=== PATIENT | female | born 2000 | race African-American/Black ===

== ENCOUNTER 2025-08-01 19:49 | Emergency (ER) | payer SELFPAY ==
[~2025-08-01] VITALS: Ht 160 cm; Wt 52.2 kg
[2025-08-01 19:54] VITALS: O2SAT 100
[2025-08-01] MEDS: DIPHENHYDRAMINE 50MG/ML VIAL IM ONE (21:10)
[2025-08-01] MEDS: LORAZEPAM 2MG/ML UD SYRINGE IM SCH (21:10)
[2025-08-01] MEDS: HALOPERIDOL LACTATE 5MG/ML VIAL IM ONE (21:10)
[2025-08-01 21:42] LABS: *AMPHETAMINES SCREEN URINE NEGATIVE (NEGATIVE); *BARBITURATES SCREEN URINE NEGATIVE (NEGATIVE); *BENZODIAZEPINES SCREEN URINE NEGATIVE (NEGATIVE); *COCAINE SCREEN URINE NEGATIVE (NEGATIVE)
[2025-08-01 21:43] LABS: CANNABINOID URINE SCREEN PRESUMPTIVE POSITIVE (NEGATIVE); ECSTASY MDMA SCREEN URINE NEGATIVE (NEGATIVE); METHADONE URINE SCREEN NEGATIVE (NEGATIVE); OPIATES URINE SCREEN NEGATIVE (NEGATIVE); PHENCYCLIDINE URINE SCREEN NEGATIVE (NEGATIVE)
[2025-08-01 21:44] LABS: BASOPHILS % 0.7 % (0.0-2.0); EOSINOPHILS % 0.5 % (0.0-5.0); HEMATOCRIT. 38.0 % (36.0-48.0); HEMOGLOBIN. 12.5 g/dL (12.0-16.0); LYMPHOCYTES % 14.8 % (20.0-50.0); MEAN PLATELET VOLUME 7.3 fl (7.4-10.4); MONOCYTES % 9.6 % (2.0-8.0); NEUTROPHILS % 74.4 % (40.0-76.0); PLATELET 303 x1000/uL (130-400); RED BLOOD CELL COUNT 4.59 mill/uL (4.2-5.4); RED CELL DISTRIBUTION WIDTH 15.1 % (11.6-14.6)
[2025-08-01 21:54] LABS: CREATININE 0.9 mg/dL (0.6-1.0); UREA NITROGEN BLOOD 7 mg/dL (9-23)
[2025-08-01 21:55] LABS: ETHANOL BLOOD < 10 mg/dL (<10); PROTEIN TOTAL 7.3 g/dL (6.0-8.3)
[2025-08-01 21:56] LABS: ASPARTATE AMINOTRANSFERASE 23 IU/L (<34); BILIRUBIN DIRECT 0.1 mg/dL (<=3.0); HCG SCREEN NEGATIVE
[2025-08-01 21:57] LABS: BILIRUBIN TOTAL 0.4 mg/dL (0.1-1.0)
[2025-08-01 22:25] LABS: CLARITY URINE CLOUDY (CLEAR); COLOR URINE YELLOW (YELLOW); GLUCOSE URINE NEGATIVE (NEGATIVE); KETONES URINE NEGATIVE (NEGATIVE); LEUKOCYTE ESTERASE URINE 1+ (NEGATIVE); NITRITE URINE POSITIVE (NEGATIVE); OCCULT BLOOD URINE TRACE (NEGATIVE); PH URINE 6.0 (4.5-8.0); PROTEIN URINE TRACE (NEGATIVE); SPECIFIC GRAVITY URINE 1.016 (1.005-1.030); UROBILINOGEN URINE 0.2 E.U./dL (0.2-1.0)
[2025-08-01] MEDS: POTASSIUM CHLORIDE 20MEQ TABLET SR PO ONE (22:37)
[2025-08-01 22:56] LABS: WBC URINE 0-2 /hpf (0-2)
[2025-08-01 22:57] LABS: BACTERIA URINE 3+; MUCUS URINE TRACE /lpf (< = 2+); RBC URINE NONE SEEN /hpf (0-2); SQUAMOUS EPITHELIAL CELL URINE 2+ /lpf (RARE/1+)
[2025-08-02] MEDS: QUETIAPINE FUMARATE 50MG TABLET PO SCH (04:37)
[2025-08-02] MEDS: NITROFURANTOIN 100MG M/M CAPSULE PO SCH (09:00)
[2025-08-02] MEDS: OLANZAPINE 5MG TABLET PO SCH (11:00)
[2025-08-02] MEDS: DIPHENHYDRAMINE 50MG/ML VIAL IM STA (11:17)
[2025-08-02] MEDS: HALOPERIDOL LACTATE 5MG/ML VIAL IM ONE (11:30)
[2025-08-02] MEDS: LORAZEPAM 2MG/ML UD SYRINGE IM NR (11:45)
[2025-08-02] MEDS ORDERED: NITR-87 MT (14:59)
[2025-08-02 16:41] VITALS: BP 119/76; PULSE 104; RESP 16; TEMP 36.9; O2SAT 100
== END 2025-08-02 17:01 ==
LOC: ER 19:49
DX: F29 Unspecified psychosis not due to a substance or known physiological condition (principal); N39.0 Urinary tract infection, site not specified; E87.6 Hypokalemia; F31.13 Bipolar disorder, current episode manic without psychotic features, severe; Z79.899 Other long term (current) drug therapy; Z20.822 Contact with and (suspected) exposure to COVID-19
CPT/HCPCS: 80076; 80305; 80048; 81003; 80307; 80329; 80320; 84703; 85025; 36415; 96372 ×2; 99285; 87426; J1200 ×2; J1630 ×2; J2060 ×2; Z7610 ×2; G0480